=== PATIENT | female | born 1935 | race Caucasian/White ===

== ENCOUNTER 2018-04-27 21:40 | Observation (INO) ==
[2018-04-27] MEDS ORDERED: ASPIRIN 325 MG TABLET PO STA (22:16)
[2018-04-27 22:18] LABS: Basophils # 0.1 10*3/uL (0.0-0.2); Basophils % 0.8 % (0.0-0.8); Eosinophils # 0.2 10*3/uL (0.0-0.87); Eosinophils % 1.7 % (0.00-10.9); Hematocrit 42.5 VOL% (35.7-47.0); Immature Granulocytes % 0.6 %; Immature Granulocytes Absolute 0.05 #; Lymphocytes # 2.8 10*3/uL (1.4-4.0); Lymphocytes % 31.1 % (21.3-54.2); Mean Corpuscular HGB Conc 32.9 GM/DL (32-36); Mean Corpuscular Hemoglobin 31 PG (27-34); Mean Platelet Volume 9.9 FL (9.6-12.0); Monocytes # 0.8 10*3/uL (0.11-0.8); Monocytes % 9.1 % (1.7-12.7); Neutrophils # 5.1 10*3/uL (1.4-7.4); Neutrophils % 56.7 % (38.7-73.9); Platelet Count 234 T/CUMM (130-400); Red Blood Count 4.57 MC/CUMM (3.8-5.5); Red Cell Distribution Width 13.4 % (9.3-17.3)
[2018-04-27] MEDS ORDERED: MORPHINE 4 MG/1 ML VIAL IV STA (22:22)
[2018-04-27] MEDS ORDERED: ONDANSETRON 4 MG/2 ML VIAL IV STA (22:22)
[2018-04-27] MEDS ORDERED: NITROGLYCERIN 2% OINT 1 INCH/GM PACK TOP STA (22:22)
[2018-04-27] MEDS ORDERED: ALUM/MAG/SIMETH/LIDO VISC 1:1 30 ML BOTTLE PO STA (22:22)
[2018-04-27] MEDS ORDERED: PANTOPRAZOLE 40 MG VIAL IV STA (22:22)
[2018-04-27 22:25] LABS: INR 1.1; PT Patient Result 11.4 SECS; Partial Thromboplastin Time 27.3 SECS (0-40)
[2018-04-27] MEDS ORDERED: MORPHINE 4 MG/1 ML VIAL IV PRN (23:59)
[2018-04-27] MEDS ORDERED: ONDANSETRON 4 MG/2 ML VIAL IV PRN (23:59)
[2018-04-28 00:37] LABS: Bilirubin,Total 0.5 MG/DL (0.2-1.0); Calcium 8.8 MG/DL (8.5-10.1); Potassium 3.8 MMOL/L (3.5-5.1); Total Protein 6.5 G/DL (6.4-8.3)
[2018-04-28] MEDS: ENOXAPARIN 40 MG/0.4 ML SYRINGE SUBCUT SCH ×2 (01:30→16:58)
[2018-04-28] MEDS: NITROGLYCERIN 2% OINT 1 INCH/GM PACK TOP SCH ×2 (01:33→06:05)
[2018-04-28 02:10] LABS: Risk Ratio 2.49; VLDL CHOLESTEROL 12.6 MG/DL
[2018-04-28] MEDS: LEVOTHYROXINE 75 MCG TABLET PO SCH (06:05)
[2018-04-28] MEDS ORDERED: ASPIRIN EC 325 MG TABLET PO SCH (09:00)
[2018-04-28] MEDS ORDERED: PANTOPRAZOLE 40 MG TABLET PO ONE (09:11)
[2018-04-28] MEDS ORDERED: ASPIRIN CHEW 81 MG TABLET PO ONE (09:11)
[2018-04-28] MEDS: HYDROXYCHLOROQUINE 200 MG TABLET PO SCH (09:17)
[2018-04-28] MEDS: ASPIRIN EC 81 MG TABLET PO SCH (09:17)
[2018-04-28] MEDS: predniSONE 5 MG TABLET PO SCH (09:17)
[2018-04-28] MEDS: PANTOPRAZOLE 40 MG TABLET PO SCH (09:17)
[2018-04-28] MEDS: CLINDAMYCIN 300 MG CAPSULE PO SCH ×4 (09:17→21:10)
[2018-04-28] MEDS: NITROFURANTOIN MACRO/MONO 100 MG CAPSULE PO SCH (09:17)
[2018-04-28] MEDS: BIMATOPROST 0.01% OPH SOLN 2.5 ML BOTTLE BOTH EYES SCH (09:17)
[2018-04-29] MEDS: ENOXAPARIN 40 MG/0.4 ML SYRINGE SUBCUT SCH ×2 (01:14→13:17)
[2018-04-29 05:16] LABS: Basophils # 0.1 10*3/uL (0.0-0.2); Basophils % 0.7 % (0.0-0.8); Eosinophils # 0.2 10*3/uL (0.0-0.87); Hematocrit 37.6 VOL% (35.7-47.0); Hemoglobin 12.3 GM/DL (12.0-16.0); Immature Granulocytes % 0.3 %; Immature Granulocytes Absolute 0.03 #; Lymphocytes # 2.4 10*3/uL (1.4-4.0); Lymphocytes % 27.2 % (21.3-54.2); Mean Corpuscular HGB Conc 32.7 GM/DL (32-36); Mean Corpuscular Hemoglobin 30 PG (27-34); Mean Corpuscular Volume 92.2 FL (87-102); Mean Platelet Volume 10.1 FL (9.6-12.0); Monocytes # 0.9 10*3/uL (0.11-0.8); Monocytes % 9.5 % (1.7-12.7); Neutrophils # 5.4 10*3/uL (1.4-7.4); Neutrophils % 60.3 % (38.7-73.9); Platelet Count 201 T/CUMM (130-400); Red Blood Count 4.08 MC/CUMM (3.8-5.5); Red Cell Distribution Width 13.4 % (9.3-17.3); White Blood Count 8.9 T/CUMM (4-12)
[2018-04-29 05:48] LABS: Calcium 9.1 MG/DL (8.5-10.1); Osmolality,Calculated 284.1 MOS/KG (273-304); Potassium 3.7 MMOL/L (3.5-5.1)
[2018-04-29] MEDS: LEVOTHYROXINE 75 MCG TABLET PO SCH (06:06)
[2018-04-29] MEDS ORDERED: MAGNESIUM SULF RIDER 2 GM in PREMIX 1 EACH IV PRN (07:02)
[2018-04-29] MEDS ORDERED: POTASSIUM CHLORIDE RIDER 10 MEQ in PREMIX 1 EACH IV PRN (07:02)
[2018-04-29] MEDS: SODIUM CHLORIDE 0.9% 1,000 ML IV SCH ×2 (07:50→21:22)
[2018-04-29] MEDS ORDERED: DIAZEPAM 5 MG TABLET PO ONE (11:46)
[2018-04-29] MEDS ORDERED: diphenhydrAMINE CAP 50 MG CAPSULE PO ONE (11:46)
[2018-04-29] MEDS: ASPIRIN EC 81 MG TABLET PO SCH (13:15)
[2018-04-29] MEDS: HYDROXYCHLOROQUINE 200 MG TABLET PO SCH (13:15)
[2018-04-29] MEDS: PANTOPRAZOLE 40 MG TABLET PO SCH (13:15)
[2018-04-29] MEDS: NITROFURANTOIN MACRO/MONO 100 MG CAPSULE PO SCH (13:15)
[2018-04-29] MEDS: BIMATOPROST 0.01% OPH SOLN 2.5 ML BOTTLE BOTH EYES SCH (13:16)
[2018-04-29] MEDS: predniSONE 5 MG TABLET PO SCH (13:16)
[2018-04-29] MEDS: CLINDAMYCIN 300 MG CAPSULE PO SCH ×2 (13:17→21:25)
[2018-04-29] MEDS ORDERED: LIDOCAINE 1% 20 ML VIAL ONE ×2 (13:37→13:54)
[2018-04-29] MEDS ORDERED: HEPARIN/NACL 0.9% 2 UNITS/ML 1,000 ML IV ONE (13:37)
[2018-04-29] MEDS ORDERED: MIDAZOLAM 2 MG/2 ML VIAL ONE (13:54)
[2018-04-29] MEDS ORDERED: fentaNYL 100 MCG/2 ML VIAL ONE (13:54)
[2018-04-29] MEDS ORDERED: VERAPAMIL 5 MG/2 ML VIAL ONE (13:54)
[2018-04-29] MEDS ORDERED: NITROGLYCERIN DRIP 0 MG/0 ML BOTTLE IV ONE (13:54)
[2018-04-29] MEDS ORDERED: NITROGLYCERIN SL 0.4 MG TABLET SL PRN (14:34)
[2018-04-29] MEDS ORDERED: ATORVASTATIN 40 MG TABLET PO SCH (21:00)
[2018-04-29] MEDS: CARVEDILOL 3.125 MG TABLET PO SCH (21:20)
[2018-04-30] MEDS: ENOXAPARIN 40 MG/0.4 ML SYRINGE SUBCUT SCH (00:24)
[2018-04-30 05:08] LABS: Basophils # 0.1 10*3/uL (0.0-0.2); Eosinophils # 0.1 10*3/uL (0.0-0.87); Eosinophils % 1.3 % (0.00-10.9); Hematocrit 37.4 VOL% (35.7-47.0); Hemoglobin 12.2 GM/DL (12.0-16.0); Immature Granulocytes % 0.8 %; Immature Granulocytes Absolute 0.07 #; Lymphocytes # 1.9 10*3/uL (1.4-4.0); Lymphocytes % 20.4 % (21.3-54.2); Mean Corpuscular HGB Conc 32.6 GM/DL (32-36); Mean Corpuscular Hemoglobin 30 PG (27-34); Mean Corpuscular Volume 93.3 FL (87-102); Mean Platelet Volume 10.4 FL (9.6-12.0); Monocytes # 0.8 10*3/uL (0.11-0.8); Monocytes % 8.5 % (1.7-12.7); Neutrophils # 6.3 10*3/uL (1.4-7.4); Platelet Count 201 T/CUMM (130-400); Red Blood Count 4.01 MC/CUMM (3.8-5.5); Red Cell Distribution Width 13.2 % (9.3-17.3); White Blood Count 9.3 T/CUMM (4-12)
[2018-04-30 05:39] LABS: Calcium 8.1 MG/DL (8.5-10.1); Potassium 3.9 MMOL/L (3.5-5.1)
[2018-04-30] MEDS: LEVOTHYROXINE 75 MCG TABLET PO SCH (06:28)
[2018-04-30 08:06] VITALS: BP 114/58
[2018-04-30] MEDS: ASPIRIN EC 81 MG TABLET PO SCH (08:55)
[2018-04-30] MEDS: PANTOPRAZOLE 40 MG TABLET PO SCH (08:55)
[2018-04-30] MEDS: CARVEDILOL 3.125 MG TABLET PO SCH (08:56)
[2018-04-30] MEDS: NITROFURANTOIN MACRO/MONO 100 MG CAPSULE PO SCH (08:56)
[2018-04-30] MEDS: HYDROXYCHLOROQUINE 200 MG TABLET PO SCH (08:56)
[2018-04-30] MEDS: predniSONE 5 MG TABLET PO SCH (08:56)
[2018-04-30] MEDS: CLINDAMYCIN 300 MG CAPSULE PO SCH (08:57)
[2018-04-30] MEDS: BIMATOPROST 0.01% OPH SOLN 2.5 ML BOTTLE BOTH EYES SCH (08:57)
[2018-04-30] MEDS ORDERED: ISOSORBIDE MONONITRATE 30 MG TABLET PO SCH (09:00)
[2018-04-30] MEDS ORDERED: INFLUENZA VIRUS VACCINE 0.5 ML SYRINGE IM ONE (11:15)
== END 2018-04-30 12:13 | disposition home or self-care (01) ==
LOC: N.EDINP 21:40 → N.ED 21:40 → N.TELEN 04-28 00:32
PROVIDERS: ADMIT Internal Medicine; ATTEND Internal Medicine
PROC: CLCCHCL (ICD-10-PCS; 2018-04-29 14:45)